=== PATIENT | male | born 1970 | race Asian ===

== ENCOUNTER 2017-02-02 18:38 | Inpatient (IN) | payer OTHER ==
[~2017-02-02] VITALS: Ht 165.1 cm; Wt 108.0 kg
[2017-02-02 19:34] LABS: BASOPHIL % 0.2 % (0-2); PLATELET COUNT 174 x10^3mcL (130-400)
[2017-02-02 19:40] LABS: RED CELL DISTRIBUTION WIDTH 14.7 % (11.5-14.5)
[2017-02-02 19:41] LABS: CALCIUM 7.6 mg/dL (8.5-10.1); CARBON DIOXIDE 31.5 mmol/L (21-32); CREATININE SERUM 2.1 mg/dL (0.7-1.3); POTASSIUM SERUM 4.2 mmol/L (3.5-5.1)
[2017-02-02 19:46] LABS: BILIRUBIN TOTAL 0.54 mg/dL (0.20-1.00); TOTAL PROTEIN, SERUM 7.4 g/dL (6.4-8.2)
[2017-02-02 19:49] LABS: ALBUMIN 3.3 g/dL (3.4-5.0)
[2017-02-02] MEDS ORDERED: SIMVASTATIN10 M1 PO (20:20)
[2017-02-02] MEDS ORDERED: CLOZAPINE100 MG PO (20:21)
[2017-02-02] MEDS ORDERED: BENZTROPINE MESY1 MG PO (20:22)
[2017-02-02] MEDS ORDERED: ABILIFY15 M1 PO (20:22)
[2017-02-02] MEDS ORDERED: DIVALPROEX SOD500 M3 PO (20:22)
[2017-02-02] MEDS ORDERED: ASPIR 8181 MG PO (20:22)
[2017-02-02] MEDS ORDERED: GLUCOTROL10 MG PO (20:22)
[2017-02-02] MEDS ORDERED: GEMFIBROZIL600 MG PO (20:23)
[2017-02-02] MEDS ORDERED: ACT30 PO (20:23)
[2017-02-02] MEDS ORDERED: METFORMIN HCL1000 MG PO (20:23)
[2017-02-02] MEDS ORDERED: ATIVAN0.5 M1 PO (20:23)
[2017-02-02 21:04] LABS: PHOSPHOROUS 4.2 mg/dL (2.5-4.9)
[2017-02-02 21:14] LABS: T3 TOTAL 0.44 ng/mL
[2017-02-02 21:18] LABS: CHOLESTEROL/HDL RATIO 2.5; MAGNESIUM 1.6 mg/dL (1.8-2.4)
[2017-02-02 21:24] LABS: FREE T4 0.98 ng/dL (0.76-1.46)
[2017-02-02 21:25] LABS: FREE THYROXINE INDEX 1.5 ug/dL (1.4-4.5); T4(THYROXINE) 4.5 ug/dL (4.7-13.3)
[2017-02-02 21:57] VITALS: BP 104/65
[2017-02-02 22:04] VITALS: BP 102/62
[2017-02-02 23:30] VITALS: BP 103/61
[2017-02-03] VITALS (15 sets, daily range): BP systolic 90–149; BP diastolic 54–97
[2017-02-03 02:04] LABS: microscopic required? NO
[2017-02-03 02:26] LABS: UA SPECIFIC GRAVITY 1.025 (1.005-1.035); urine erythrocyte NEGATIVE (NEGATIVE)
[2017-02-03 02:34] LABS: AMPHETAMINE QUAL UR NONE DETECTED (NEG <=1000)
[2017-02-03 05:38] LABS: BASOPHIL % 0.1 % (0-2); PLATELET COUNT 156 x10^3mcL (130-400)
[2017-02-03 05:41] LABS: RED CELL DISTRIBUTION WIDTH 14.7 % (11.5-14.5)
[2017-02-03 05:46] LABS: CALCIUM 7.5 mg/dL (8.5-10.1); CREATININE SERUM 1.6 mg/dL (0.7-1.3); MAGNESIUM 1.7 mg/dL (1.8-2.4); PHOSPHOROUS 3.6 mg/dL (2.5-4.9); POTASSIUM SERUM 4.1 mmol/L (3.5-5.1)
[2017-02-04] VITALS (19 sets, daily range): BP systolic 88–181; BP diastolic 51–88
[2017-02-04 05:53] LABS: BASOPHIL % 0.3 % (0-2); PLATELET COUNT 170 x10^3mcL (130-400)
[2017-02-04 06:00] LABS: RED CELL DISTRIBUTION WIDTH 14.7 % (11.5-14.5)
[2017-02-04 06:10] LABS: CALCIUM 7.8 mg/dL (8.5-10.1); CARBON DIOXIDE 29.6 mmol/L (21-32); CHLORIDE SERUM 104 mmol/L (98-107); CREATININE SERUM 0.7 mg/dL (0.7-1.3); GFR1 > 60 mL/min; GLUCOSE SERUM 133 mg/dL (74-106); MAGNESIUM 2.1 mg/dL (1.8-2.4); POTASSIUM SERUM 3.4 mmol/L (3.5-5.1); SODIUM SERUM 139 mmol/L (136-145)
[2017-02-05] VITALS (18 sets, daily range): BP systolic 120–178; BP diastolic 61–114
[2017-02-05 05:29] LABS: BASOPHIL % 0.2 % (0-2); PLATELET COUNT 194 x10^3mcL (130-400)
[2017-02-05 05:38] LABS: CALCIUM 8.4 mg/dL (8.5-10.1); CARBON DIOXIDE 30.3 mmol/L (21-32); CHLORIDE SERUM 104 mmol/L (98-107); CREATININE SERUM 0.7 mg/dL (0.7-1.3); GFR1 > 60 mL/min; GLUCOSE SERUM 163 mg/dL (74-106); MAGNESIUM 1.5 mg/dL (1.8-2.4); POTASSIUM SERUM 3.5 mmol/L (3.5-5.1); SODIUM SERUM 141 mmol/L (136-145)
[2017-02-06] VITALS (18 sets, daily range): BP systolic 130–167; BP diastolic 79–100
[2017-02-06 04:59] LABS: BASOPHIL % 0.5 % (0-2); PLATELET COUNT 208 x10^3mcL (130-400)
[2017-02-06 05:20] LABS: CALCIUM 8.4 mg/dL (8.5-10.1); CARBON DIOXIDE 30.2 mmol/L (21-32); CHLORIDE SERUM 107 mmol/L (98-107); CREATININE SERUM 0.7 mg/dL (0.7-1.3); GFR1 > 60 mL/min; GLUCOSE SERUM 137 mg/dL (74-106); MAGNESIUM 1.5 mg/dL (1.8-2.4); PHOSPHOROUS 3.8 mg/dL (2.5-4.9); POTASSIUM SERUM 3.7 mmol/L (3.5-5.1); SODIUM SERUM 143 mmol/L (136-145)
[2017-02-07] VITALS (20 sets, daily range): BP systolic 144–186; BP diastolic 82–101
[2017-02-07 05:07] LABS: PLATELET COUNT 240 x10^3mcL (130-400); RED CELL DISTRIBUTION WIDTH 14.5 % (11.5-14.5)
[2017-02-07 05:09] LABS: BASOPHIL % 0 % (0-2)
[2017-02-07 05:21] LABS: CALCIUM 8.9 mg/dL (8.5-10.1); CHLORIDE SERUM 102 mmol/L (98-107); CREATININE SERUM 0.8 mg/dL (0.7-1.3); GFR1 > 60 mL/min; GLUCOSE SERUM 274 mg/dL (74-106); MAGNESIUM 1.9 mg/dL (1.8-2.4); PHOSPHOROUS 3.5 mg/dL (2.5-4.9); POTASSIUM SERUM 4.1 mmol/L (3.5-5.1); SODIUM SERUM 139 mmol/L (136-145)
[2017-02-08] VITALS (18 sets, daily range): BP systolic 132–177; BP diastolic 78–107
[2017-02-08 04:42] LABS: BASOPHIL % 0.3 % (0-2); PLATELET COUNT 261 x10^3mcL (130-400)
[2017-02-08 04:46] LABS: RED CELL DISTRIBUTION WIDTH 14.7 % (11.5-14.5)
[2017-02-08 05:01] LABS: CALCIUM 8.9 mg/dL (8.5-10.1); CHLORIDE SERUM 99 mmol/L (98-107); GFR1 > 60 mL/min; GLUCOSE SERUM 334 mg/dL (74-106); MAGNESIUM 1.9 mg/dL (1.8-2.4); PHOSPHOROUS 3.4 mg/dL (2.5-4.9); POTASSIUM SERUM 4.2 mmol/L (3.5-5.1); SODIUM SERUM 139 mmol/L (136-145)
[2017-02-09] VITALS (17 sets, daily range): BP systolic 101–180; BP diastolic 65–106
[2017-02-09 04:51] LABS: BASOPHIL % 0.2 % (0-2); PLATELET COUNT 275 x10^3mcL (130-400)
[2017-02-09 04:55] LABS: RED CELL DISTRIBUTION WIDTH 14.7 % (11.5-14.5)
[2017-02-09 05:13] LABS: CALCIUM 9.1 mg/dL (8.5-10.1); CARBON DIOXIDE 31.3 mmol/L (21-32); CHLORIDE SERUM 100 mmol/L (98-107); GFR1 > 60 mL/min; GLUCOSE SERUM 242 mg/dL (74-106); MAGNESIUM 2.2 mg/dL (1.8-2.4); PHOSPHOROUS 5.4 mg/dL (2.5-4.9); POTASSIUM SERUM 3.8 mmol/L (3.5-5.1); SODIUM SERUM 141 mmol/L (136-145)
[2017-02-10] VITALS (19 sets, daily range): BP systolic 78–133; BP diastolic 48–80
[2017-02-10 05:43] LABS: BASOPHIL % 0.2 % (0-2); PLATELET COUNT 266 x10^3mcL (130-400); RED CELL DISTRIBUTION WIDTH 14.5 % (11.5-14.5)
[2017-02-10 05:45] LABS: CALCIUM 8.5 mg/dL (8.5-10.1); CARBON DIOXIDE 33.7 mmol/L (21-32); CHLORIDE SERUM 103 mmol/L (98-107); CREATININE SERUM 0.9 mg/dL (0.7-1.3); GFR1 > 60 mL/min; GLUCOSE SERUM 226 mg/dL (74-106); MAGNESIUM 1.9 mg/dL (1.8-2.4); PHOSPHOROUS 3.9 mg/dL (2.5-4.9); SODIUM SERUM 143 mmol/L (136-145)
[2017-02-10 05:46] LABS: POTASSIUM SERUM 2.8 mmol/L (3.5-5.1)
[2017-02-11] VITALS (18 sets, daily range): BP systolic 85–138; BP diastolic 51–88
[2017-02-11 05:49] LABS: CALCIUM 8.5 mg/dL (8.5-10.1); CARBON DIOXIDE 34.4 mmol/L (21-32); CHLORIDE SERUM 107 mmol/L (98-107); GFR1 > 60 mL/min; GLUCOSE SERUM 122 mg/dL (74-106); MAGNESIUM 2.1 mg/dL (1.8-2.4); POTASSIUM SERUM 3.3 mmol/L (3.5-5.1); SODIUM SERUM 144 mmol/L (136-145)
[2017-02-11 05:56] LABS: BASOPHIL % 0.3 % (0-2); PLATELET COUNT 258 x10^3mcL (130-400)
[2017-02-12] VITALS (22 sets, daily range): BP systolic 85–182; BP diastolic 43–108
[2017-02-12 05:38] LABS: BASOPHIL % 0.1 % (0-2); PLATELET COUNT 278 x10^3mcL (130-400); RED CELL DISTRIBUTION WIDTH 14.5 % (11.5-14.5)
[2017-02-12 05:46] LABS: CALCIUM 8.9 mg/dL (8.5-10.1); CARBON DIOXIDE 33.2 mmol/L (21-32); CHLORIDE SERUM 106 mmol/L (98-107); CREATININE SERUM 0.9 mg/dL (0.7-1.3); GFR1 > 60 mL/min; GLUCOSE SERUM 162 mg/dL (74-106); MAGNESIUM 2.3 mg/dL (1.8-2.4); PHOSPHOROUS 3.6 mg/dL (2.5-4.9); POTASSIUM SERUM 4.3 mmol/L (3.5-5.1); SODIUM SERUM 144 mmol/L (136-145)
[2017-02-13] VITALS (15 sets, daily range): BP systolic 86–161; BP diastolic 46–87
[2017-02-13 05:04] LABS: BASOPHIL % 0.3 % (0-2); PLATELET COUNT 285 x10^3mcL (130-400)
[2017-02-13 05:06] LABS: CALCIUM 8.6 mg/dL (8.5-10.1); CHLORIDE SERUM 105 mmol/L (98-107); CREATININE SERUM 0.8 mg/dL (0.7-1.3); GFR1 > 60 mL/min; GLUCOSE SERUM 173 mg/dL (74-106); MAGNESIUM 1.9 mg/dL (1.8-2.4); PHOSPHOROUS 3.5 mg/dL (2.5-4.9); RED CELL DISTRIBUTION WIDTH 14.7 % (11.5-14.5); SODIUM SERUM 144 mmol/L (136-145)
[2017-02-14 05:57] LABS: BASOPHIL % 0.4 % (0-2); PLATELET COUNT 310 x10^3mcL (130-400); RED CELL DISTRIBUTION WIDTH 14.4 % (11.5-14.5)
[2017-02-14 06:18] LABS: CALCIUM 9.7 mg/dL (8.5-10.1); CARBON DIOXIDE 32.6 mmol/L (21-32); CHLORIDE SERUM 101 mmol/L (98-107); CREATININE SERUM 0.8 mg/dL (0.7-1.3); GFR1 > 60 mL/min; GLUCOSE SERUM 124 mg/dL (74-106); MAGNESIUM 1.9 mg/dL (1.8-2.4); POTASSIUM SERUM 3.2 mmol/L (3.5-5.1); SODIUM SERUM 142 mmol/L (136-145)
[2017-02-14 07:45] VITALS: BP 179/116
[2017-02-14 11:33] VITALS: BP 131/99
[2017-02-14 15:43] VITALS: BP 140/87
[2017-02-14 19:40] VITALS: BP 145/86
[2017-02-15 01:02] VITALS: BP 150/80
[2017-02-15 04:29] VITALS: BP 162/96
[2017-02-15 05:36] LABS: BASOPHIL % 0.8 % (0-2); PLATELET COUNT 303 x10^3mcL (130-400)
[2017-02-15 05:48] LABS: CALCIUM 9.5 mg/dL (8.5-10.1); CARBON DIOXIDE 31.2 mmol/L (21-32); CHLORIDE SERUM 100 mmol/L (98-107); CREATININE SERUM 0.8 mg/dL (0.7-1.3); GFR1 > 60 mL/min; GLUCOSE SERUM 155 mg/dL (74-106); MAGNESIUM 1.7 mg/dL (1.8-2.4); PHOSPHOROUS 3.8 mg/dL (2.5-4.9); POTASSIUM SERUM 3.3 mmol/L (3.5-5.1); SODIUM SERUM 139 mmol/L (136-145)
[2017-02-15 08:00] VITALS: BP 185/125
[2017-02-15 08:27] VITALS: Ht 165.1 cm; Wt 108.0 kg
[2017-02-15 12:15] VITALS: BP 106/69
[2017-02-15 15:45] VITALS: BP 123/46
[2017-02-15 19:34] VITALS: BP 92/71
[2017-02-16] VITALS (7 sets, daily range): BP systolic 96–138; BP diastolic 40–89
[2017-02-16 05:43] LABS: CALCIUM 9.7 mg/dL (8.5-10.1); CHLORIDE SERUM 100 mmol/L (98-107); CREATININE SERUM 1.3 mg/dL (0.7-1.3); GFR1 > 60 mL/min; GLUCOSE SERUM 159 mg/dL (74-106); MAGNESIUM 2.6 mg/dL (1.8-2.4); POTASSIUM SERUM 3.9 mmol/L (3.5-5.1); SODIUM SERUM 139 mmol/L (136-145)
[2017-02-16 05:54] LABS: BASOPHIL % 0.5 % (0-2); PLATELET COUNT 321 x10^3mcL (130-400); RED CELL DISTRIBUTION WIDTH 14.5 % (11.5-14.5)
[2017-02-17 04:05] VITALS: BP 96/66
[2017-02-17 07:30] VITALS: BP 145/83; BP 96/66
[2017-02-17 12:00] VITALS: BP 128/83
[2017-02-17] MEDS ORDERED: HEP5I SC (13:05)
[2017-02-17] MEDS ORDERED: NIC14 TD (13:06)
[2017-02-17] MEDS ORDERED: BAY PO (13:07)
[2017-02-17] MEDS ORDERED: NOR5 PO (13:07)
[2017-02-17] MEDS ORDERED: COR3 PO (13:07)
[2017-02-17] MEDS ORDERED: TYL650S PR (13:08)
[2017-02-17] MEDS ORDERED: BG MC (13:08)
[2017-02-17] MEDS ORDERED: DEXPF IV (13:08)
[2017-02-17] MEDS ORDERED: L20I IV (13:09)
[2017-02-17] MEDS ORDERED: PULMICORT0.5 MG/2 M IH (13:09)
[2017-02-17] MEDS ORDERED: COL100UDC PO (13:10)
[2017-02-17] MEDS ORDERED: PRI20 PO (13:11)
[2017-02-17] MEDS ORDERED: HUMULIN R100 U/1 M1 SC (13:12)
[2017-02-17] MEDS ORDERED: REG5 PO (13:12)
[2017-02-17] MEDS ORDERED: LEVEMIR100 U/M1 SQ (13:12)
[2017-02-17] MEDS ORDERED: ZOFI IV (13:13)
[2017-02-17] MEDS ORDERED: MVIL PO (13:13)
[2017-02-17] MEDS ORDERED: KCL20L PO (13:14)
[2017-02-17 13:33] VITALS: BP 109/69
[2017-02-17 14:37] VITALS: BP 109/69
[2017-02-17 17:39] VITALS: BP 99/72
== END 2017-02-17 18:11 | DRG 207 ==
LOC: ED 18:38 → IC 19:55 → DU 19:55 → IC 22:47 → DU 22:56 → IC 22:57
PROVIDERS: Emergency Medicine; Family Medicine; ADMIT Family Medicine
PROC: 5A1955Z Respiratory Ventilation, Greater than 96 Consecutive Hours (ICD-10-PCS; principal; 2017-02-02)
PROC: 0BH17EZ Insertion of Endotracheal Airway into Trachea, Via Natural or Artificial Opening (ICD-10-PCS; 2017-02-02)
PROC: 05HM33Z Insertion of Infusion Device into Right Internal Jugular Vein, Percutaneous Approach (ICD-10-PCS; 2017-02-03)
PROC: B543ZZA Ultrasonography of Right Jugular Veins, Guidance (ICD-10-PCS; 2017-02-03)
DX: J96.01 Acute respiratory failure with hypoxia (principal); J69.0 Pneumonitis due to inhalation of food and vomit; N17.0 Acute kidney failure with tubular necrosis; E43 Unspecified severe protein-calorie malnutrition; J44.1 Chronic obstructive pulmonary disease with (acute) exacerbation; E87.1 Hypo-osmolality and hyponatremia; D68.69 Other thrombophilia; Z68.41 Body mass index [BMI] 40.0-44.9, adult; E87.3 Alkalosis; E87.4 Mixed disorder of acid-base balance; E11.65 Type 2 diabetes mellitus with hyperglycemia; F20.9 Schizophrenia, unspecified; E87.6 Hypokalemia; E83.42 Hypomagnesemia; E83.51 Hypocalcemia; K59.00 Constipation, unspecified; D64.9 Anemia, unspecified; E66.01 Morbid (severe) obesity due to excess calories; G47.33 Obstructive sleep apnea (adult) (pediatric); I16.0 Hypertensive urgency; E78.5 Hyperlipidemia, unspecified; F17.210 Nicotine dependence, cigarettes, uncomplicated; E83.39 Other disorders of phosphorus metabolism; E87.8 Other disorders of electrolyte and fluid balance, not elsewhere classified; Z79.84 Long term (current) use of oral hypoglycemic drugs
CPT/HCPCS: 36556; 36600; 80307; 82962; 83880; 84439; 97110-GP; 97116-GP; 97530-GP; A4628; C9113; J0330; J0696; J1642; J1644; J1815; J1940; J1956; J2060; J2250; J2543; J2704; J2920; J2930; J3010; J3475; J3480; J3486; J3490; J7030; J7040; J7042; J7050; J7613; J7620; J7626; J7644; J8597; Q0092